=== PATIENT | male | born 1955 | race Caucasian/White ===

== ENCOUNTER 2018-08-20 07:08 | Emergency (ER) | payer MEDICAID ==
[~2018-08-20] VITALS: Ht 175.3 cm; Wt 95.5 kg
[~2018-08-20 07:08] MED LIST: LOSA25TA96 PO; NAPR-56 PO; OMEP-84 PO; TRAM50TA2 PO
[2018-08-20 07:11] VITALS: BP 163/106
[2018-08-20] MEDS ORDERED: HYDROcodone/acetaminophen 10/325mg tab PO ONE (07:35)
[2018-08-20] MEDS ORDERED: TETanus/Pertussis (Acell)/Diphther VAC/PF (Tdap-Adult) 0.5ml syringe IMVAC ONE (08:00)
[2018-08-20] MEDS ORDERED: LIDOcaine 1% w/epiNEPHrine 1:200,000 30ml vial IM ONE (08:15)
[2018-08-20] MEDS ORDERED: HYDR-4353 PO (10:26)
== END 2018-08-20 10:44 | disposition home or self-care (01) ==
LOC: ER 07:09
DX: S51.811A Laceration without foreign body of right forearm, initial encounter (principal); S51.812A Laceration without foreign body of left forearm, initial encounter; S60.551A Superficial foreign body of right hand, initial encounter; K21.9 Gastro-esophageal reflux disease without esophagitis; G89.29 Other chronic pain; F12.90 Cannabis use, unspecified, uncomplicated; Z79.899 Other long term (current) drug therapy; W25.XXXA Contact with sharp glass, initial encounter; Y93.89 Activity, other specified; Y92.89 Other specified places as the place of occurrence of the external cause; Y99.9 Unspecified external cause status
CPT/HCPCS: 12001; 73090; 90471; 90715; 99283; J3490

== ENCOUNTER 2019-05-22 11:59 | Emergency (ER) | payer MEDICAID ==
[~2019-05-22] VITALS: Ht 175.3 cm; Wt 94.7 kg
[~2019-05-22 11:59] MED LIST changes: -LOSA25TA96 PO
[2019-05-22 12:28] VITALS: BP 128/76
[2019-05-22] MEDS ORDERED: LIDOcaine 1% W/epiNEPHrine 1:200,000 10ml vial IJ ONE (12:55)
== END 2019-05-22 13:51 | disposition home or self-care (01) ==
LOC: ER 12:00
DX: S01.81XA Laceration without foreign body of other part of head, initial encounter (principal); I10 Essential (primary) hypertension; K21.9 Gastro-esophageal reflux disease without esophagitis; G89.29 Other chronic pain; F17.200 Nicotine dependence, unspecified, uncomplicated; F12.90 Cannabis use, unspecified, uncomplicated; Z79.899 Other long term (current) drug therapy; W22.8XXA Striking against or struck by other objects, initial encounter; Y93.89 Activity, other specified; Y92.89 Other specified places as the place of occurrence of the external cause; Y99.8 Other external cause status
CPT/HCPCS: 12011; 99282